=== PATIENT | female | born 1975 | race Caucasian/White ===

== ENCOUNTER 2024-09-13 20:16 | Emergency (ER) | payer OTHER ==
[~2024-09-13] VITALS: Ht 162.5 cm; Wt 61.2 kg
[2024-09-13 20:51] LABS: BASO % 0.4 % (0.0-1.0); EOS # 0.1 10*3/uL (0.0-0.4); EOS % 2.8 % (1.0-4.0); HEMATOCRIT 43.6 % (37.0-47.0); MEAN CORPUSCULAR HGB 28.6 pg (27.0-31.0); MEAN CORPUSCULAR HGB CONC 32.1 g/dl (33.0-37.0); MEAN PLATELET VOLUME 10.4 fl (9.6-12.3); MONO # 0.7 10*3/uL (0.1-1.0); MONO % 15.6 % (3.0-9.0); NEUT # 2.2 10*3/uL (2.3-7.9); NEUT % 47.6 % (47.0-73.0); PLATELET COUNT AUTOMATED 243 10*3/uL (130-400); RED CELL DISTRI WIDTH 12.4 % (0-14.5); WHITE BLOOD COUNT 4.7 10*3/uL (4.8-10.8)
[2024-09-13 21:02] LABS: ACT PARTIAL THROMBO TIME 22.5 SECONDS (20.0-32.1)
[2024-09-13 21:21] LABS: ALKALINE PHOSPHATASE 72 U/L (46-116); BUN 15 mg/dl (9-23); CHLORIDE 105 mmol/L (98-107); POTASSIUM 4.5 mmol/L (3.4-5.1); SGPT/ALT 16 U/L (5-49); TOTAL PROTEIN 6.7 gm/dL (6.0-8.0)
== END 2024-09-13 23:49 | disposition home or self-care (01) ==
LOC: ED 20:16
PROVIDERS: Emergency Medicine
DX: R00.2 Palpitations (principal); F41.9 Anxiety disorder, unspecified; Z88.0 Allergy status to penicillin; Z88.8 Allergy status to other drugs, medicaments and biological substances